=== PATIENT | female | born 1975 | race Two or more races ===

== ENCOUNTER 2019-09-28 06:25 | Day surgery (SDC) | payer OTHER ==
[2019-09-28] MEDS ORDERED: ULTRACET PO (08:37)
[2019-09-28] MEDS ORDERED: ALEVE220 M1 PO (08:37)
== END 2019-09-28 13:15 | disposition home or self-care (01) ==
LOC: CIR.AMB 06:25
DX: S83.242A Other tear of medial meniscus, current injury, left knee, initial encounter (principal); S83.282A Other tear of lateral meniscus, current injury, left knee, initial encounter